=== PATIENT | male | born 2000 | race African-American/Black ===

== ENCOUNTER 2020-06-08 17:49 | Emergency (ER) | payer BC, SELFPAY ==
--- NOTE | ~2020-06-08 | XR_ITS ---
EXAMINATION: XR finger 3rd RT min 2V INDICATION: Right third finger pain and deformity TECHNIQUE: Four views of the right third finger are obtained. COMPARISON: None available FINDINGS: There is no fracture, dislocation, or subluxation. There is flexion at the distal interphal angeal joint and suggestion of mild extension at the proximal interphalangeal joint. Mild soft tissue swelling is noted. IMPRESSION: 1. Radiographic findings consistent with extensor tendon injury at the distal interphalangeal joint o f the third finger. Orthopedic evaluation is recommended. Reviewed, dictated and finalized at location A. [facility] IMPRESSION: 1. Radiographic findings consistent with extensor tendon injury at the distal i nterphalangeal joint of the third finger. Orthopedic evaluation is recommended.
[2020-06-08 18:04] VITALS: BP 116/65; PULSE 85; RESP 16; TEMP 36.8; O2SAT 100
--- NOTE | 2020-06-08 18:32 | ED.UPPEXIN ---
HPI - Extremity Injury (Upper) General Chief Complaint: Extremity Injury, Upper Stated Complaint: injured finger Source: patient Mode of arrival: ambulatory Limitations: no limitations History of Present Illness HPI narrative: Patient is a 19-year-old male who presents complaining of right middle digit pain. He reports putting hand in pocket and jamming finger earlier this afternoon. Patient now unable to extend distal tip of middle finger of right hand. He denies other injuries. He denies pain at this time. He denies taking [id number]-snbbgiz medications prior to arrival. Patient reports no significant medical history Related Data Home Medications Medication Instructions Recorded Confirmed No Home Medications 06/08/20 06/08/20 Allergies Allergy/AdvReac Type Severity Reaction Status Date / Time No Known Allergies Allergy Verified 06/08/20 18:05 Review of Systems Review of Systems: Narrative: CONSTITUTIONAL: Denies fever, chills, or sweats. EYES: Denies visual changes, redness, or discharge. ENT: Denies rhinorrhea, congestion, sore throat, or otalgia. CARDIOVASCULAR: Denies chest pain, palpitations, or edema. RESPIRATORY: Denies cough or dyspnea. GASTROINTESTINAL: Denies abdominal pain, nausea, vomiting, or diarrhea. GENITOURINARY: Denies dysuria or hematuria. SKIN: Denies rash or itching. MUSCULOSKELETAL: Right middle digit injury NEUROLOGIC: Denies headache, numbness, dizziness, or weakness. PSYCHIATRIC: Denies anxiety or depression. [facility] Past Medical History Medical History (Updated 06/09/20 @ 00:00 by [facility]) No significant past medical history Surgical History Surgical History (Updated 06/08/20 @ 18:34 by WILLAM Grimm) No significant past surgical history Family History Family History (Updated 06/08/20 @ 18:34 by WILLAM Grimm) Other Hypertension Social History Social History (Updated 06/08/20 @ 18:34 by WILLAM Grimm) Smoking status: Never smoker Alcohol intake: never Substance use: never Living arrangements: with family Occupation/Education: occupation Gender identity (if verbalized by the patient): Male Exam Narrative: Exam Narrative: GENERAL: Well-appearing, well-nourished, and in no acute distress. HEAD: Normocephalic, atraumatic. EYES: EOMI. No redness or drainage. Conjunctiva are normal. ENT: Mucous membranes pink and moist. CHEST: No respiratory distress. HEART: Regular rate and rhythm. EXTREMITIES: Visible deformity to right middle digit, distal sensation intact. SKIN: Warm, dry, no rash. NEURO: No focal deficits. Alert and oriented x3. Gait steady. PSYCH: Normal affect. No signs of depression or anxiety. Course Vital Signs Vital signs: Vital Signs Temperature 36.8 C 06/08/20 18:04 Pulse Rate 85 06/08/20 18:04 Respiratory Rate 16 06/08/20 18:04 Blood Pressure 116/65 06/08/20 18:04 Pulse Oximetry 100 06/08/20 18:04 Temperature 36.8 C 06/08/20 18:04 Pulse Rate 85 06/08/20 18:04 Respiratory Rate 16 06/08/20 18:04 Blood Pressure 116/65 06/08/20 18:04 Pulse Oximetry 100 06/08/20 18:04 Reviewed MDM - Extremity Injury (Upper) MDM Narrative Medical decision making narrative: Patient had dislocation to right middle finger. Finger reduced, xray taken and patient placed in finger splint at this time. Patient comfortable at this time and denies pain. Patient to follow up with hand specialist. Patient is stable for discharge to home with outpatient follow up as needed. Differential Diagnosis Differential diagnosis: Likely finger sprain, dislocation of finger and fracture of hand Medical Records Attestation: I reviewed the patient's medical records. Critical Care Time Critical Care Time Critical Care Time: No Discharge Plan Discharge Clinical Impression: Injury of tendon of finger Patient Disposition: Home, Self-Care Condition: Stable Instructions: Finger Sprain
== END 2020-06-08 18:35 | disposition home or self-care (01) ==
PROVIDERS: Emergency Provider Nurse Practitioner
DX: S69.91XA Unspecified injury of right wrist, hand and finger(s), initial encounter (principal); X58.XXXA Exposure to other specified factors, initial encounter
CPT/HCPCS: 29130; 73140; 99213; G0463